=== PATIENT | male | born 1975 | race Caucasian/White ===

== ENCOUNTER 2016-09-29 19:46 | Emergency (ER) | payer SELFPAY ==
[2016-09-29 20:09] VITALS: BP 152/88; PULSE 79; RESP 14; TEMP 98.1; O2SAT 95
--- NOTE | 2016-09-29 20:17 | UCPHY ---
H & P Time Seen by Provider: 09/29/16 20:05 Patient Type: New HPI/ROS: CHIEF COMPLAINT: Anal fissure HPI: The patient is a 40-year-old male with a history of prior hemorrhoid surgery as well as history of an anal fissure. He reports several weeks of severe rectal pain at approximately the 11 o'clock position as well as blood clots and spasms of pain. He has been using [id number] medications with some relief. He states this is similar but worse to pain that he had diagnosed as an anal fissure in the past. He has been using Flexeril with some relief. REVIEW OF SYSTEMS: Aside from elements discussed in the HPI, a comprehensive 10-point review of systems was reviewed and is negative. PMH: Anal fissure, hemorrhoid surgery SOCIAL HISTORY: Student. Denies drug abuse. FAMILY HISTORY: Reviewed, noncontributory PHYSICAL EXAM: General:Patient is alert, in no acute distress. Rectal: No external anal fissures seen. Anoscopy and sigmoidoscopy is not possible secondary to lack of equipment. I see no active bleeding. Digital examination reveals no fluctuance or specific area of tenderness. Neuro: Oriented x3. Normal motor function. Normal sensory function. Smoking Status: Never smoked Constitutional: Initial Vital Signs Temperature (C) 36.7 C 09/29/16 20:03 Heart Rate 79 09/29/16 20:03 Respiratory Rate 14 09/29/16 20:03 Blood Pressure 152/88 H 09/29/16 20:03 O2 Sat (%) 95 09/29/16 20:03 O2 Delivery Mode Room Air Allergies/Adverse Reactions: azithromycin [From Zithromax] Allergy (Verified 09/29/16 20:04) codeine Allergy (Verified 09/29/16 20:04) Home Medications: Medication Instructions Recorded Cyclobenzaprine [Flexeril] 10 mg PO TID #30 tab 09/29/16 Flexeril 09/29/16 Medical Decision Making ED Course/Re-evaluation: This patient presents with rectal pain. I explained to him that his description of symptoms sounds much more like hemorrhoid or other pathology rather than an anal fissure, but that I cannot exclude either possibility here in the urgent care. I recommended he see a specialist, but he states he would prefer to wait several weeks until he returns home to [place]. I did agree to fill his Flexeril prescription. Departure - Departure Disposition: Home, Routine, Self-Care Clinical Impression: Rectal pain Condition: Good Instructions: Rectal Pain (ED) Additional Instructions: We recommend that you follow-up with a surgeon and/or GI specialist as soon as possible, within one week if possible. Return to the ED for fever, severe pain , bleeding or other concerns. Continue over the counter medications as directed. Referrals: OUT OF STATE,. [Primary Care Provider] - As per Instructions Andrew Miranda MD [Medical Doctor] - As per Instructions Prescriptions: Cyclobenzaprine [Flexeril] 10 mg PO TID #30 tab - PQRS PQRS Measurement: 134: Depression screening and followup, PRIME -PHQ2 (12 years and older) Over the last 2 weeks, how often have you been bothered by any of the following problems? 1. Feeling down, depressed, or hopeless? 2. Little interest or pleasure in doing things? Patient answered no to both 1 and 2 130: Documentation of medications. Reviewed all patient medications, doses, route and frequency. 226: Do you smoke? No. 51: 18 years old and older with diagnosis of COPD, spirometry performance. Spirometry not performed; equipment not available. Patient has no history of COPD 52: 18 years old and older with COPD and symptoms of COPD or FEV1<60% predicted prescribed a B Agonist. Spirometry not performed; equipment not available.
== END 2016-09-29 20:30 | disposition home or self-care (01) ==
LOC: CED 19:46
DX: K62.89 Other specified diseases of anus and rectum (principal)
CPT/HCPCS: 99202-PO; G0463-PO

== ENCOUNTER 2016-10-21 10:27 | Day surgery (SDC) | payer SELFPAY ==
[~2016-10-21 10:27] MED LIST: BUPIVACAINE/EPI 0.5% 30 ML SDV ONE
[2016-10-21] MEDS ORDERED: LIDOCAINE 1% 5 ML SDV ONE (10:45)
[2016-10-21] MEDS ORDERED: cefOXitin SODIUM 1 GM in D5W 50 ML IV ONE (11:00)
[2016-10-21] MEDS ORDERED: METHYLENE BLUE 0.5% 50 MG/10 ML AMP IVP ONE (12:00)
[2016-10-21] MEDS ORDERED: MIDAZOLAM 2 MG/2 ML VIAL ONE (14:10)
[2016-10-21] MEDS ORDERED: PROPOFOL/EMULSION 500 MG/50 ML BOTTLE IV ONE (14:10)
[2016-10-21] MEDS ORDERED: fentaNYL 100 MCG/2 ML INJ ONE ×2 (14:10)
[2016-10-21] MEDS ORDERED: METOCLOPRAMIDE 10 MG/2 ML VIAL ONE (14:38)
[2016-10-21] MEDS ORDERED: ONDANSETRON 4 MG/2 ML VIAL ONE (14:38)
[2016-10-21] MEDS ORDERED: DEXAMETHASONE 4 MG/ML VIAL ONE (14:38)
[2016-10-21] MEDS ORDERED: KETOROLAC 30 MG/1 ML SDV ONE (14:38)
[2016-10-21] MEDS ORDERED: LIDOCAINE 2% 5 ML SDV ONE (14:38)
== END 2016-10-21 16:35 | disposition home or self-care (01) ==
LOC: FSGY 10:27
PROVIDERS: ATTEND Surgery
PROC: 0D8R0ZZ Division of Anal Sphincter, Open Approach (ICD-10-PCS; principal; 2016-10-21 12:30)
PROC: 06LY0CC Occlusion of Hemorrhoidal Plexus with Extraluminal Device, Open Approach (ICD-10-PCS; principal; 2016-10-21 12:30)
DX: K60.2 Anal fissure, unspecified (principal); Z87.891 Personal history of nicotine dependence
CPT/HCPCS: J0697; J1100; J1885; J2250; J2405; J2704; J2765; J3010